=== PATIENT | female | born 1955 | race African-American/Black ===

== ENCOUNTER 2017-06-29 11:47 | Day surgery (SDC) | payer OTHER ==
[2017-06-25 10:35] VITALS: BMI 26.7
[2017-06-29] MEDS ORDERED: PROPOFOL 20 ML ONE (12:38)
[2017-06-29 13:30] VITALS: TEMP 98
[2017-06-29 13:31] VITALS: BP 123/68; PULSE 65
== END 2017-06-29 13:32 | disposition home or self-care (01) ==
LOC: FASU-ENDO 11:47
PROVIDERS: ATTEND Internal Medicine Gastroenterology
PROC: 0DJD8ZZ Inspection of Lower Intestinal Tract, Via Natural or Artificial Opening Endoscopic (ICD-10-PCS; principal; 2017-06-29 12:16)
DX: Z12.11 Encounter for screening for malignant neoplasm of colon (principal)